=== PATIENT | female | born 1950 | race Caucasian/White ===

== ENCOUNTER 2016-10-13 09:30 | Day surgery (SDC) | payer MEDICARE, BC ==
[2016-10-13] MEDS ORDERED: ONDANSETRON HCL INJ/PF 4 MG/2 ML SDV ONE (09:48)
[2016-10-13] MEDS ORDERED: GLYCOPYRROLATE INJ 0.4 MG/2 ML VIAL ONE (09:48)
[2016-10-13] MEDS ORDERED: NALOXONE HCL INJ/PF 0.4 MG/1 ML SDV ONE (09:48)
[2016-10-13] MEDS ORDERED: GLUCAGON,HUMAN RECOMB 1 MG INJ ONE (09:49)
[2016-10-13] MEDS ORDERED: FLUMAZENIL INJ 0.5 MG/5 ML VIAL IV ONE (09:49)
[2016-10-13] MEDS ORDERED: EPINEPHRINE INJ 1 MG/10 ML DISP.SYRIN ONE (09:49)
[2016-10-13] MEDS: MIDAZOLAM 2 MG/2 ML INJ ONE ×6 (10:08→10:42)
[2016-10-13] MEDS: FENTANYL CITRATE INJ/PF 100 MCG/2 ML AMPUL ONE ×4 (10:10→10:30)
--- NOTE | 2016-10-13 10:57 | PDOC DISCHARGE SUMMARY ---
Discharge Summary (SDC) - Discharge Final Diagnosis: External hemorrhoids Date of Surgery: 10/13/16 Discharge Date: 10/13/16 Condition: Good Treatment or Instructions: [facility] [place] [id number] POST ENDOSCOPY DISCHARGE INSTRUCTIONS 1. Diet: Start clear liquids that a regular diet as tolerated. 2. Resume all preoperative medications. All oral anticoagulants and aspirins can be resumed 24 hours after procedure. 3. If a polypectomy was performed some bleeding per rectum may occur. This should stop within 3 days. If not, please contact the office. 4. If you had a colonoscopy you may experience some bloating and delayed return of normal bowel function for several days, your regular bowel movement pattern should resume within a week. 5. Please contact [facility] at to make an appointment with Dr. Singleton for 1 to 3 weeks following procedure. 6. If you have any questions or concerns regarding your care,treatment plan or follow up, please contact our office. 7. Per clinical guidelines we recommend you undergo a repeat colonoscopy in 7- 8 years. Referrals: JOAQUIN LINTON MD [Primary Care Provider] - Discharge Diet: As Tolerated Home Care Assistance: None Needed Report the Following to Your Physician Immediately: Shortness of Breath
--- NOTE | 2016-10-13 11:27 | OPERATIVE REPORT E ---
Operative Report NAME: SARITA GALLEGOS : 1950 AGE: 66Y DATE OF SURGERY: 10/13/2016 ROOM: PREOPERATIVE DIAGNOSES: 1. Personal history of colon polyps. 2. Family history of colon cancer. POSTOPERATIVE DIAGNOSES: 1. Normal colon. 2. External hemorrhoids. PROCEDURE: Total colonoscopy to cecum with photo documentation. SURGEON: ALISSA SIFUENTES M.D. ANESTHESIA: Conscious sedation COMPLICATIONS: None. ESTIMATED BLOOD LOSS: None DRAINS: None. TISSUE REMOVED OR ALTERED: None. SUMMARY OF PROCEDURE: The patient was brought from the holding area to the main endoscopy suite where conscious sedation was induced. She was placed in the left lateral decubitus position and monitoring devices attached. Surgical plan and surgical timeout were conducted. A rectal exam was performed. There were external hemorrhoids, generous but not thrombosed. There were no palpable anorectal pathology other than the hemorrhoids. A flexible adult colonoscope was advanced to the anorectal canal all the way to the cecum. This was an excellent study on a well prepped bowel. The colon was very redundant. Of note, despite the patient receiving 8 mg of Versed and 125 mcg of fentanyl, she had difficulty achieving a satisfactory level of sedation so there was some discomfort throughout the procedure. Nonetheless the procedure did proceed without undue force or excessive distress. Once the cecum was cannulated, the scope was withdrawn through the entire colon examining the mucosa carefully. There was no evidence of tumor, stricture, polyp, or bleeding. The scope was brought back through the anorectal canal. No other pathology seen. Scope was withdrawn from the patient's anus. She tolerated the procedure well. She was taken to the recovery area in stable condition. Per surveillance guidelines, she will be an appropriate candidate for followup colonoscopy in approximately 7-8 years given her strong family history of colon and rectal cancer. DICTATING PHYSICIAN: ALISSA SIFUENTES M.D. [id number] PHY#: [id number] ID: [id number] JOB#: [id number] ACCT: [id number] cc:ALISSA SIFUENTES M.D. >
[2016-10-13 12:39] VITALS: BP 116/78
== END 2016-10-13 12:35 | disposition home or self-care (01) ==
LOC: END 09:30
PROVIDERS: ATTEND Surgery
PROC: 0DJD8ZZ Inspection of Lower Intestinal Tract, Via Natural or Artificial Opening Endoscopic (ICD-10-PCS; principal; 2016-10-13 10:00)
DX: K64.4 Residual hemorrhoidal skin tags (principal); Z86.010 Personal history of colon polyps; Z80.0 Family history of malignant neoplasm of digestive organs; E03.9 Hypothyroidism, unspecified; E78.00 Pure hypercholesterolemia, unspecified; M19.90 Unspecified osteoarthritis, unspecified site; Z79.899 Other long term (current) drug therapy; Z79.82 Long term (current) use of aspirin; Z79.84 Long term (current) use of oral hypoglycemic drugs
CPT/HCPCS: 45378; 82962; J2250; J3010; J0171; J1610; J2310; J2405; J3490

== ENCOUNTER → 2018-11-05 | Outpatient (CLI) | payer MEDICARE, BC ==
--- NOTE | 2018-11-07 22:17 | XCELERA REPORT ---
[address] [address] Transthoracic Echocardiogram Report Name: SARITA GALLEGOS Age: 68 yrs Gender: Female : 1950 Patient Status: Outpatient Patient Location: [facility] Study Date: 11/05/2018 10:14 AM Height: 66 in Weight: 245 lb BSA: 2.2 m2 Procedure: A two-dimensional transthoracic echocardiogram with color flow and Doppler was performed. The study was technically difficult with many images being suboptimal in quality. Reason For Study: HTN History: HTN. Ordering Physician: JOAQUIN LINTON Performed By: June Schmidt Interpretation Summary The left ventricle is normal in size. There is normal left ventricular wall thickness. LV EF is 65% The left ventricular ejection fraction is within normal limits. Doppler measurements suggest impaired left ventricular relaxation, which is associated with grade I/IV or mild diastolic dysfunction The left ventricular wall motion is normal. There is no thrombus. No ASD ,VSD , or PFO seen. The right ventricle is not well visualized secondary to technical limitations The right atrium is normal. The left atrium is mildly dilated. There is no evidence of mitral valve prolapse. There is no vegetation seen on the mitral valve. There is no mitral valve stenosis. There is a mild amount of mitral regurgitation There is no aortic valvular vegetation. There is no aortic valve stenosis There is aortic sclerosis without aortic stenosis. There is no LVOT obstruction. No aortic regurgitation is present. There is no tricuspid stenosis. There is a trace amount of tricuspid regurgitation Right ventricular systolic pressure is normal. RVSP is 24 to 29 mm of Hg , with RA mean of 5 to 10. There is no pulmonic valvular stenosis. There is a trace amount of pulmonic regurgitation The aortic root is normal size. The inferior vena cava appeared normal and decreased > 50% with respiration (RAP 5-10 mmHg) There is no pericardial effusion. MMode/2D Measurements & Calculations RVDd: 3.5 cm LVIDd: 5.1 cm FS: 37.5 % Ao root diam: 3.0 cm IVSd: 0.73 cm LVIDs: 3.2 cm EDV(Teich): 121.7 ml Ao root area: 7.2 cm2 LVPWd: 1.1 cm ESV(Teich): 39.9 ml EF(Teich): 67.2 % Doppler Measurements & Calculations MV E max susana: MV dec slope: Ao V2 max: LV V1 max P.6 cm/sec 252.8 cm/sec2 131.2 cm/sec 3.8 mmHg MV A max susana: MV dec time: 0.19 secAo max P.9 mmHgLV V1 max: 82.2 cm/sec 97.9 cm/sec MV E/A: 0.59 PA V2 max: PI end-d susana: TR max susana: 83.8 cm/sec 90.5 cm/sec 215.5 cm/sec PA max P.8 mmHg TR max P.6 mmHg Left Ventricle The left ventricle is normal in size. There is normal left ventricular wall thickness. LV EF is 65%. The left ventricular ejection fraction is within normal limits. Doppler measurements suggest impaired left ventricular relaxation, which is associated with grade I/IV or mild diastolic dysfunction. The left ventricular wall motion is normal. There is no thrombus. No ASD ,VSD , or PFO seen. Right Ventricle The right ventricle is not well visualized secondary to technical limitations. Atria The right atrium is normal. The left atrium is mildly dilated. Mitral Valve There is no evidence of mitral valve prolapse. There is no vegetation seen on the mitral valve. There is no mitral valve stenosis. There is a mild amount of mitral regurgitation. Aortic Valve There is no aortic valvular vegetation. There is no aortic valve stenosis. There is aortic sclerosis without aortic stenosis. There is no LVOT obstruction. No aortic regurgitation is present. Tricuspid Valve There is no tricuspid stenosis. There is a trace amount of tricuspid regurgitation. Right ventricular systolic pressure is normal. RVSP is 24 to 29 mm of Hg , with RA mean of 5 to 10. Pulmonic Valve There is no pulmonic valvular stenosis. There is a trace amount of pulmonic regurgitation. Great Vessels The aortic root is normal size. The inferior vena cava appeared normal and decreased > 50% with respiration (RAP 5-10 mmHg). Effusions There is no pericardial effusion. : JOAQUIN LINTON Lakshmi
== END ==
LOC: SP 09:38
PROVIDERS: ATTEND Family Medicine
DX: R00.2 Palpitations (principal); I10 Essential (primary) hypertension
CPT/HCPCS: 93306